=== PATIENT | male | born 1980 | race American Indian/Alaskan Native ===

== ENCOUNTER → 2017-03-11 | Outpatient (CLI) | payer OTHER ==
[~2017-03-11] MED LIST: ACET325 PO; ALBIPROI INH; ALLO100 PO; ATOR10 PO; AZIT250 PO; Augmentin 875-1 EACH PO; BUSP10 PO; Bactrim Ds Tab1 EACH PO; CEPH500 PO; CITA20 PO; CLAR500 PO; CYCL10 PO; DIPATR PO; DOXY100 PO; Flonase 0.05% N16 GM; HYDACE5 PO; HYDACE5325 PO; HYDGUAL120 PO; HYDMOR4; HYDR1TAB94 PO; IBUP600 PO; IBUP800 PO; LISI5 PO; Lice Cream Rin120 ML TP; META400 PO; METF500 PO; METPRE4DP PO; NAPR500; NAPR550; NYST100000; Norco 10-325 T1 EACH PO; OMEP40CA12 PO; OXYACE5T PO; PRED20 PO; Percocet 5-3251 EACH PO; Prednisone20 MG PO; RANI150; RANI150 PO; RXPROCODSY PO; RXPROM25S PR; SULI200 PO; [UNRECOGNIZED DRUG - REMARK]; [UNRECOGNIZED DRUG - REMARK]; [UNRECOGNIZED DRUG - REMARK]
== END ==
LOC: LAB EV 15:33
DX: L03.115 Cellulitis of right lower limb (principal)
CPT/HCPCS: 87070; 87075; 87147; 87205

== ENCOUNTER → 2017-10-03 | Outpatient (CLI) | payer OTHER | END | disposition home or self-care (01) | LOC: LAB SHORT 12:36 → LAB 12:36 | DX: B35.1 Tinea unguium (principal); L60.2 Onychogryphosis | CPT/HCPCS: 87102 ==

== ENCOUNTER 2018-10-13 14:28 | Emergency (ER) | payer OTHER ==
[~2018-10-13] VITALS: Ht 180.3 cm; Wt 181.4 kg
[2018-10-13 15:22] LABS: Source, Urine Clean Catch
[2018-10-13 15:25] LABS: Bilirubin, Urine Neg (Neg); Blood, Urine Neg (Neg); Glucose Qualitative, Urine 4+ (Neg); Ketones, Urine Neg (Neg); Leukocyte Esterase, Urine Neg (Neg); Nitrite, Urine Neg (Neg); Protein, Urine Neg (Neg); Specific Gravity, Urine 1.025 (1.003-1.022); Urobilinogen, Urine NORM (Normal)
[2018-10-13 15:28] LABS: BASOPHILS ABSOLUTE AUTO 0.05 K/mm3 (0.00-0.23); BASOPHILS PERCENT AUTO 0 % (0-2); EOSINOPHILS ABSOLUTE AUTO 0.14 K/mm3 (0.00-0.68); EOSINOPHILS PERCENT AUTO 1 % (0-6); Hematocrit 42.5 % (37.0-53.0); Hemoglobin 14.8 g/dL (13.5-17.5); IMMATURE GRAN ABSOLUTE AUTO 0.05 K/mm3 (0.00-0.10); IMMATURE GRAN PERCENT AUTO 0 % (0-1); LYMPHOCYTES ABSOLUTE AUTO 3.66 K/mm3 (0.84-5.20); LYMPHOCYTES PERCENT AUTO 31 % (21-46); MONOCYTES ABSOLUTE AUTO 0.86 K/mm3 (0.16-1.47); MONOCYTES PERCENT AUTO 7 % (4-13); Mean Corpuscular HGB 31.6 pg (26.0-34.0); Mean Corpuscular HGB Conc 34.8 g/dL (31.5-36.5); Mean Corpuscular Volume 91 fL (80-100); NEUTROPHILS ABSOLUTE AUTO 7.14 K/mm3 (1.96-9.15); NEUTROPHILS PERCENT AUTO 60 % (41-73); RDW Coefficient Variation 12.5 % (11.7-14.2); RDW Standard Deviation 40.6 fL (35.1-46.3); Red Blood Cell Count 4.69 M/mm3 (4.30-5.90)
[2018-10-13 15:37] LABS: Mean Platelet Volume 12.4 fL (9.1-12.4); Platelet Count 234 K/mm3 (150-400)
[2018-10-13 15:37] LABS: Appearance, Urine Clear (Clear); Color, Urine Yellow (P-Yellow)
== END 2018-10-13 17:50 | disposition left against medical advice (07) ==
LOC: ER 14:28
PROVIDERS: Physician Assistant
DX: R53.1 Weakness (principal); E11.9 Type 2 diabetes mellitus without complications; Z53.20 Procedure and treatment not carried out because of patient's decision for unspecified reasons
CPT/HCPCS: 36415; 71046; 81003; 82947; 85025; 93005; 93010; 99285-25

== ENCOUNTER 2019-12-25 15:33 | Inpatient (IN) | payer OTHER ==
[~2019-12-25] VITALS: Ht 180.3 cm; Wt 165.1 kg
[~2019-12-25 15:33] MED LIST changes: -ABAT250V; -CIPR500 PO; -Flagyl500 MG PO; -Norco 5-325 Ta1 EACH PO
--- NOTE | 2019-12-25 20:40 | NUR ---
PT ARRIVED FROM ER VIA GURNEY, TRANSFERED SELF TO BED. REPORTS INCREASE IN PAIN TO 5/10 WHEN MOVING BUT TOLERABLE WHEN SITTING OR STANDING. DECLINES NEED FOR PAIN MEDICATION AT THIS TIME. PT [id number] ANSWERS QUESTIONS APPROPRIATLY, PAIN LOCATED IN LLQ PER PATIENT. PATIENT LEFT ROOM TO GO SMOKE, EDUCATED PATIENT ON RISKS OF SMOKING WITH WOUND HEALING AND ASKED IF PT WOULD BE WILLING TO EXPLORE ALTERNATIVES TO SMOKING, PT DECLINED AT THIS TIME AND STATED "MAYBE LATER". NO WEAKNESS NOTED WITH AMBULATION. EDUCATED BARREL FILLER HEAD LIGHT. WILL START IV FLUIDS ONCE PATIENT RETURNS.
[2019-12-26 03:57] LABS: BASOPHILS ABSOLUTE AUTO 0.06 K/mm3 (0.00-0.23); BASOPHILS PERCENT AUTO 0 % (0-2); EOSINOPHILS PERCENT AUTO 2 % (0-6); Hematocrit 41.1 % (37.0-53.0); IMMATURE GRAN ABSOLUTE AUTO 0.12 K/mm3 (0.00-0.10); IMMATURE GRAN PERCENT AUTO 1 % (0-1); LYMPHOCYTES ABSOLUTE AUTO 3.72 K/mm3 (0.84-5.20); LYMPHOCYTES PERCENT AUTO 23 % (21-46); MONOCYTES ABSOLUTE AUTO 1.57 K/mm3 (0.16-1.47); MONOCYTES PERCENT AUTO 10 % (4-13); Mean Corpuscular HGB 31.1 pg (26.0-34.0); Mean Corpuscular HGB Conc 34.1 g/dL (31.5-36.5); Mean Corpuscular Volume 91 fL (80-100); Mean Platelet Volume 10.8 fL (9.1-12.4); NEUTROPHILS ABSOLUTE AUTO 10.59 K/mm3 (1.96-9.15); NEUTROPHILS PERCENT AUTO 65 % (41-73); Platelet Count 223 K/mm3 (150-400); RDW Coefficient Variation 11.9 % (11.7-14.2); White Blood Cell Count 16.36 K/mm3 (4.00-11.30)
[2019-12-26 04:09] LABS: Anion Gap 5 mmol/L (6-16); Blood Urea Nitrogen 8 mg/dL (8-24); CO2, Blood 29 mmol/L (21-32); Calcium, Blood 6.9 mg/dL (8.5-10.1); Chloride, Blood 101 mmol/L (98-108); Creatinine, Blood 0.61 mg/dL (0.60-1.20); Glomerular Filtration Rate >60 (60-); Glucose, Blood 240 mg/dL (70-99); Potassium, Blood 3.7 mmol/L (3.5-5.5); Sodium, Blood 135 mmol/L (136-145)
--- NOTE | 2019-12-26 08:05 | NUR ---
SUMMARY PT REQUIRING DILAUDID FOR ADEQUATE PAIN CONTROL TONIGHT.
--- NOTE | 2019-12-26 16:15 | NUR ---
SUMMARY: NO ACUTE CHANGE TODAY. VSS, A/O, PT INDEP IN ROOM. ABLE TO TOLERATE CLEAR LIQ DIET TODAY. REPORTS CONTINUED PAIN, BUT NOT WORSE WITH LIQUID. DENIES N/V. ENCOURAGING MOBILITY. CONTINUING ON ABX. NO SAFETY CONCERNS AT THIS TIME.
--- NOTE | 2019-12-27 04:16 | NUR ---
SHIFT SUMMARY: DIVERTICULITIS WITH PERF PT HAS BEEN ALERT AND ORIENTED X4 WHILE AWAKE. HE HAS BEEN MAJORITY OF THE SHIFT ASLEEP. PT REPORTS STILL HAVING A TENDER STOMACH MORE ON THE LEFT SIDE. PAIN IS BEST MANAGED WITH IV DILAUDID. HE IS INDEPENDENT IN THE ROOM. PT IS VOIDING, PASSING GAS, AND HAVING BM'S. HE IS TOLERATING CLEAR LIQUIDS WITH NO NAUSEA/VOMITING. HE IS CURRENTLY LYING IN BED SLEEPING WITH CALL LIGHT IN REACH. THE PLAN IS TO CONTINUE IV ABX AND MONITOR LABS.
--- NOTE | 2019-12-27 09:55 | NUR ---
PATIENT GAVE THIS STUDENT NURSE PERMISSION TO PROVIDE CARE ON
[2019-12-27 10:42] LABS: BASOPHILS ABSOLUTE AUTO 0.05 K/mm3 (0.00-0.23); BASOPHILS PERCENT AUTO 0 % (0-2); EOSINOPHILS ABSOLUTE AUTO 0.33 K/mm3 (0.00-0.68); EOSINOPHILS PERCENT AUTO 3 % (0-6); Hematocrit 43.4 % (37.0-53.0); Hemoglobin 14.7 g/dL (13.5-17.5); IMMATURE GRAN ABSOLUTE AUTO 0.07 K/mm3 (0.00-0.10); IMMATURE GRAN PERCENT AUTO 1 % (0-1); LYMPHOCYTES ABSOLUTE AUTO 2.55 K/mm3 (0.84-5.20); LYMPHOCYTES PERCENT AUTO 20 % (21-46); MONOCYTES ABSOLUTE AUTO 1.04 K/mm3 (0.16-1.47); MONOCYTES PERCENT AUTO 8 % (4-13); Mean Corpuscular HGB 31.1 pg (26.0-34.0); Mean Corpuscular HGB Conc 33.9 g/dL (31.5-36.5); Mean Corpuscular Volume 92 fL (80-100); Mean Platelet Volume 10.7 fL (9.1-12.4); NEUTROPHILS ABSOLUTE AUTO 8.43 K/mm3 (1.96-9.15); NEUTROPHILS PERCENT AUTO 68 % (41-73); Platelet Count 248 K/mm3 (150-400); RDW Coefficient Variation 11.9 % (11.7-14.2); Red Blood Cell Count 4.72 M/mm3 (4.30-5.90); White Blood Cell Count 12.47 K/mm3 (4.00-11.30)
[2019-12-27] MEDS ORDERED: Norco 5-325 Ta1 EACH PO (12:03)
[2019-12-27] MEDS ORDERED: Flagyl500 MG PO (12:04)
[2019-12-27] MEDS ORDERED: ABAT250V (12:07)
[2019-12-27] MEDS ORDERED: CIPR500 PO (12:07)
--- NOTE | 2019-12-27 14:53 | NUR ---
DISCHARGE SUMMARY PT A&OX4, VSS, REP PAIN MANAGED WITH 5 MG NORCO, DENIES N&V, DANICA PO REG DIET, DC INSTRUCTIONS PROVIDED, PT REP UNDERSTANDING THOSE INSTRUCTIONS INCLUDING MODIFIED DIET, FU WITH SURGEON, PAIN MANAGEMENT. IV DC'D.
== END 2019-12-27 16:00 | disposition home or self-care (01) | DRG 392 ==
LOC: ER 15:33 → SURS 18:25
PROVIDERS: ADMIT Surgery
PROC: 3E0234Z Introduction of Serum, Toxoid and Vaccine into Muscle, Percutaneous Approach (ICD-10-PCS; principal; 2019-12-25)
DX: K57.20 Diverticulitis of large intestine with perforation and abscess without bleeding (principal); Z68.43 Body mass index [BMI] 50.0-59.9, adult; E11.9 Type 2 diabetes mellitus without complications; Z23 Encounter for immunization; I10 Essential (primary) hypertension; E66.01 Morbid (severe) obesity due to excess calories; F17.210 Nicotine dependence, cigarettes, uncomplicated; Z79.84 Long term (current) use of oral hypoglycemic drugs
CPT/HCPCS: 36415; 80048; 82947; 83605; 85025; 96365; 96375; 99283-25; A9270-GY; J0744; J1170; J1650; J1956; J2270; J3010; J7120; Q2038

== ENCOUNTER → 2019-12-25 | Outpatient (CLI) | payer OTHER ==
[~2019-12-25] MED LIST changes: +ABAT250V; +CIPR500 PO; +Flagyl500 MG PO; +Norco 5-325 Ta1 EACH PO
[2019-12-25 13:00] LABS: BASOPHILS ABSOLUTE AUTO 0.07 K/mm3 (0.00-0.23); BASOPHILS PERCENT AUTO 0 % (0-2); EOSINOPHILS ABSOLUTE AUTO 0.11 K/mm3 (0.00-0.68); EOSINOPHILS PERCENT AUTO 1 % (0-6); Hematocrit 44.4 % (37.0-53.0); Hemoglobin 15.9 g/dL (13.5-17.5); IMMATURE GRAN ABSOLUTE AUTO 0.11 K/mm3 (0.00-0.10); IMMATURE GRAN PERCENT AUTO 1 % (0-1); LYMPHOCYTES PERCENT AUTO 13 % (21-46); MONOCYTES ABSOLUTE AUTO 1.89 K/mm3 (0.16-1.47); MONOCYTES PERCENT AUTO 8 % (4-13); Mean Corpuscular HGB 31.7 pg (26.0-34.0); Mean Corpuscular HGB Conc 35.8 g/dL (31.5-36.5); Mean Corpuscular Volume 88 fL (80-100); Mean Platelet Volume 10.9 fL (9.1-12.4); NEUTROPHILS ABSOLUTE AUTO 17.45 K/mm3 (1.96-9.15); NEUTROPHILS PERCENT AUTO 77 % (41-73); Platelet Count 269 K/mm3 (150-400); RDW Coefficient Variation 12.1 % (11.7-14.2); RDW Standard Deviation 38.8 fL (35.1-46.3); Red Blood Cell Count 5.02 M/mm3 (4.30-5.90); White Blood Cell Count 22.53 K/mm3 (4.00-11.30)
[2019-12-25 13:09] LABS: Alanine Aminotransfer (ALT/SGP 45 U/L (12-78); Albumin, Blood 3.7 g/dL (3.4-5.0); Albumin/Globulin Ratio 0.8 (0.8-1.8); Alk Phos 98 U/L (40-126); Anion Gap 9 mmol/L (6-16); Aspartate Aminotrans (AST/SGOT 13 U/L (12-37); Bilirubin, Total 1.6 mg/dL (0.1-1.0); Blood Urea Nitrogen 9 mg/dL (8-24); Bun/Creatinine Ratio 9.4 (12.0-20.0); CO2, Blood 27 mmol/L (21-32); Calcium, Blood 9.2 mg/dL (8.5-10.1); Chloride, Blood 95 mmol/L (98-108); Creatinine, Blood 0.96 mg/dL (0.60-1.20); Globulin, Blood 4.7 g/dL (2.2-4.0); Glomerular Filtration Rate >60 (60-); Glucose, Blood 293 mg/dL (70-99); Potassium, Blood 3.9 mmol/L (3.5-5.5); Sodium, Blood 131 mmol/L (136-145); Total Protein, Blood 8.4 g/dL (6.4-8.2)
== END | disposition home or self-care (01) ==
LOC: LAB EV 12:54 → LAB SHORT 12:54
PROVIDERS: Physician Assistant
DX: R10.9 Unspecified abdominal pain (principal)
CPT/HCPCS: 80053; 85025; 87086

== ENCOUNTER 2020-02-03 10:26 | Day surgery (SDC) | payer OTHER ==
[~2020-02-03] VITALS: Ht 180.3 cm; Wt 158.0 kg
[~2020-02-03 10:26] MED LIST changes: +ABAT250V; +ATOR20 PO; +CIPR500 PO; +Flagyl500 MG PO; +GABA100 PO; +GLIP5 PO; +GLUCOSE TABS PO; +MELO7.5 PO; +Norco 5-325 Ta1 EACH PO
--- NOTE | 2020-02-03 12:09 | NUR ---
Ambulatory in Day SurgeryPatient states colon prep results clear. History, Chart, Medications and Allergies reviewed before start of procedure.Lungs clear T/O to Auscultation. Patient confirms NPO status and agrees with scheduled surgery. Patient States Post-Procedure ride home has been arranged. PT CBG [id number], WILL NOTIFY DR ELLIS. REPORT TO VINCENZO CLARK RN.
--- NOTE | 2020-02-03 13:00 | NUR ---
PT HAS BEEN UPDATED ABOUT DELAY DUE TO EMERGENCY CASE. PT FIRST REPORTS THAT HE MAY NEED TO RESCHEDULE FOR ANOTHER DAY STATES "I GOTTA GET SOMETHING TO EAT". DR EDOUARD THEN OVER TO UPDATE PT AND PT NOW PLANS TO STAY. PT IS AWARE THAT PT IT MAYBE SEVERAL HOURS UNTIL HIS PROCEDURE.
--- NOTE | 2020-02-03 16:19 | NUR ---
02/03/20 [address] DR ARGUETA Anesthesia record Patient to ENDO 1. History, Chart, Medications and Allergies reviewed before start of procedure.MONITOR INTACT WITH CONTINUOUS PULSE OXIMETRY AND INTERMITTENT BP.O2 VIA NON REBREATHER INTACT THROUGHOUT SEDATION/PROCEDURE.
--- NOTE | 2020-02-03 17:20 | NUR ---
Discharge instructions reviewed with patient. Patient verbalizes understanding. Copy given to patient to take home. History, Chart, Medications and Allergies reviewed before start of procedure.Discharged via wheelchair to private car for ride home.
== END 2020-02-03 17:31 | disposition home or self-care (01) ==
LOC: ORSCMMR 10:26 → ORD 12:00 → ORSCMMR 17:31
PROVIDERS: Surgery
PROC: 0DJD8ZZ Inspection of Lower Intestinal Tract, Via Natural or Artificial Opening Endoscopic (ICD-10-PCS; principal; 2020-02-03 12:00)
DX: Z87.19 Personal history of other diseases of the digestive system (principal); E11.9 Type 2 diabetes mellitus without complications; F32.9 Major depressive disorder, single episode, unspecified; E66.01 Morbid (severe) obesity due to excess calories; Z68.42 Body mass index [BMI] 45.0-49.9, adult; Z79.84 Long term (current) use of oral hypoglycemic drugs; Z79.899 Other long term (current) drug therapy; F17.210 Nicotine dependence, cigarettes, uncomplicated
CPT/HCPCS: 82947; J2704; J7120

== ENCOUNTER 2020-05-05 09:02 | Inpatient (IN) | payer OTHER ==
[~2020-05-05] VITALS: Ht 180.3 cm; Wt 155.6 kg
[2020-05-05 10:29] LABS: BASOPHILS ABSOLUTE AUTO 0.08 K/mm3 (0.00-0.23); BASOPHILS PERCENT AUTO 1 % (0-2); EOSINOPHILS ABSOLUTE AUTO 0.15 K/mm3 (0.00-0.68); EOSINOPHILS PERCENT AUTO 1 % (0-6); Hematocrit 46.2 % (37.0-53.0); IMMATURE GRAN ABSOLUTE AUTO 0.08 K/mm3 (0.00-0.10); IMMATURE GRAN PERCENT AUTO 1 % (0-1); LYMPHOCYTES ABSOLUTE AUTO 3.84 K/mm3 (0.84-5.20); LYMPHOCYTES PERCENT AUTO 24 % (21-46); MONOCYTES ABSOLUTE AUTO 1.13 K/mm3 (0.16-1.47); MONOCYTES PERCENT AUTO 7 % (4-13); Mean Corpuscular HGB 30.8 pg (26.0-34.0); Mean Corpuscular HGB Conc 34.6 g/dL (31.5-36.5); Mean Corpuscular Volume 89 fL (80-100); Mean Platelet Volume 10.7 fL (9.1-12.4); NEUTROPHILS ABSOLUTE AUTO 10.72 K/mm3 (1.96-9.15); NEUTROPHILS PERCENT AUTO 67 % (41-73); Platelet Count 283 K/mm3 (150-400); RDW Coefficient Variation 11.7 % (11.7-14.2)
[2020-05-05 10:48] LABS: Alanine Aminotransfer (ALT/SGP 54 U/L (12-78); Albumin, Blood 3.6 g/dL (3.4-5.0); Albumin/Globulin Ratio 0.8 (0.8-1.8); Alk Phos 94 U/L (50-136); Anion Gap 8 mmol/L (6-16); Aspartate Aminotrans (AST/SGOT 28 U/L (12-37); Bilirubin, Total 0.7 mg/dL (0.1-1.0); Blood Urea Nitrogen 8 mg/dL (8-24); Bun/Creatinine Ratio 11.6 (12.0-20.0); CO2, Blood 27 mmol/L (21-32); Chloride, Blood 99 mmol/L (98-108); Creatinine, Blood 0.69 mg/dL (0.60-1.20); Globulin, Blood 4.7 g/dL (2.2-4.0); Glomerular Filtration Rate >60 (60-); Glucose, Blood 269 mg/dL (70-99); Potassium, Blood 4.2 mmol/L (3.5-5.5); Sodium, Blood 134 mmol/L (136-145); Total Protein, Blood 8.3 g/dL (6.4-8.2)
[2020-05-05 12:31] LABS: Source, Urine Clean Catch
[2020-05-05 12:37] LABS: Appearance, Urine Clear (Clear); Bilirubin, Urine Neg (Neg); Blood, Urine Neg (Neg); Color, Urine Yellow (P-Yellow); Glucose Qualitative, Urine 3+ (Neg); Ketones, Urine 2+ (Neg); Leukocyte Esterase, Urine Neg (Neg); Nitrite, Urine Neg (Neg); Protein, Urine 1+ (Neg); Specific Gravity, Urine 1.015 (1.003-1.022); Urobilinogen, Urine NORM (Normal)
--- NOTE | 2020-05-05 18:47 | NUR ---
SHIFT SUMMARY/ADMISSION TO MEDICAL FLOOR PT AxOx4. COOPERATIVE WITH CARE. ARRIVED TO MEDICAL FLOOR FOR ADMIT AT APPROX 1540. PT C/O LLQ ABD PAIN x1 WEEK. PAIN MED ADMINISTERED PER EMAR. PT CONTINENT, AND INDEPENDENT IN THE ROOM. SURGICAL CONSULTED TONIGHT. NO SURGERY NEEDED AT THIS TIME. PLAN FOR BOWEL REST, IV ABX, AND PAIN MANAGEMENT. FLUIDS RUNNING. VITALS REVIEWED. PT DENIES ANY NEEDS AT THIS TIME.
--- NOTE | 2020-05-06 04:43 | NUR ---
SECOND WORKER SUMMARY A/OX4, IND IN ROOM. C/O LLQ PAIN, MEDICATED PER EMAR X 4. PT UPSET AT BEGINNING OF SHIFT D/T INADEQUATE PAIN RELIEF WITH MORPHINE 2MG Q2. DISCUSSED WITH TANK SETTER PROVIDER, NEW ORDER PLACED TO D/C MORPHINE AND CHANGE TO DILAUDID 0.5MG Q2. IV ABX GIVEN, D5 WITH NS RUNNING AT 100. VSS, NO ACUTE CHANGES AT THIS TIME. BED IN LOWEST POSITION WITH CALL LIGHT IN REACH. WILL CONTINUE TO MONITOR AND REPORT TO ONCOMING RN.
[2020-05-06 04:56] LABS: BASOPHILS ABSOLUTE AUTO 0.07 K/mm3 (0.00-0.23); BASOPHILS PERCENT AUTO 1 % (0-2); EOSINOPHILS ABSOLUTE AUTO 0.18 K/mm3 (0.00-0.68); EOSINOPHILS PERCENT AUTO 2 % (0-6); Hematocrit 42.6 % (37.0-53.0); Hemoglobin 14.9 g/dL (13.5-17.5); IMMATURE GRAN ABSOLUTE AUTO 0.05 K/mm3 (0.00-0.10); IMMATURE GRAN PERCENT AUTO 0 % (0-1); LYMPHOCYTES PERCENT AUTO 23 % (21-46); MONOCYTES ABSOLUTE AUTO 0.96 K/mm3 (0.16-1.47); MONOCYTES PERCENT AUTO 8 % (4-13); Mean Corpuscular HGB 31.4 pg (26.0-34.0); Mean Corpuscular Volume 90 fL (80-100); Mean Platelet Volume 10.6 fL (9.1-12.4); NEUTROPHILS ABSOLUTE AUTO 8.14 K/mm3 (1.96-9.15); NEUTROPHILS PERCENT AUTO 67 % (41-73); Platelet Count 255 K/mm3 (150-400); RDW Coefficient Variation 11.9 % (11.7-14.2); RDW Standard Deviation 38.6 fL (35.1-46.3); Red Blood Cell Count 4.75 M/mm3 (4.30-5.90)
[2020-05-06 05:46] LABS: Alanine Aminotransfer (ALT/SGP 45 U/L (12-78); Albumin, Blood 3.1 g/dL (3.4-5.0); Albumin/Globulin Ratio 0.8 (0.8-1.8); Alk Phos 80 U/L (50-136); Anion Gap 7 mmol/L (6-16); Aspartate Aminotrans (AST/SGOT 18 U/L (12-37); Bilirubin, Total 0.9 mg/dL (0.1-1.0); Blood Urea Nitrogen 8 mg/dL (8-24); Bun/Creatinine Ratio 11.9 (12.0-20.0); CO2, Blood 27 mmol/L (21-32); Calcium, Blood 9.1 mg/dL (8.5-10.1); Chloride, Blood 101 mmol/L (98-108); Creatinine, Blood 0.67 mg/dL (0.60-1.20); Globulin, Blood 4.1 g/dL (2.2-4.0); Glomerular Filtration Rate >60 (60-); Glucose, Blood 239 mg/dL (70-99); Potassium, Blood 3.6 mmol/L (3.5-5.5); Sodium, Blood 135 mmol/L (136-145); Total Protein, Blood 7.2 g/dL (6.4-8.2)
--- NOTE | 2020-05-06 18:36 | NUR ---
PT IS A/OX4, PLEASANT AND COOPERATIVE, THE PT APPEARS TO BE BREATHING EASILY ON RA AT THIS TIME, THE PT HAS BEEN UP WALKING IN THE [place]AB[place] ON THE MEDICAL FLOOR, THE PT CONTINUES TO HAVE LLQ ABD PAIN, AND WAS MEDICATED FOR PAIN T/O THE DAY, THE PT HAS BEEN TOLERATING CLEAR LIQUID DIET WITHOUT NAUSEA, CALL LIGHT IN REACH, WILL CONTINUE TO MONITOR AND ASSESS FOR CHANGES
--- NOTE | 2020-05-07 04:04 | NUR ---
CLIENT SERVICES ACCOUNT MANAGER SUMMARY A/OX4, INDEPENDENT IN ROOM. MEDICATED FOR LLQ PAIN X4. TOLERATING CLEAR LIQUID DIET. VSS, NO ACUTE CHANGES AT THIS TIME. BED IN LOWEST POSITION WITH CALL LIGHT IN REACH. WILL CONTINUE TO MONITOR AND REPORT TO ONCOMING RN.
[2020-05-07 05:39] LABS: BASOPHILS ABSOLUTE AUTO 0.04 K/mm3 (0.00-0.23); BASOPHILS PERCENT AUTO 0 % (0-2); EOSINOPHILS ABSOLUTE AUTO 0.23 K/mm3 (0.00-0.68); EOSINOPHILS PERCENT AUTO 2 % (0-6); Hemoglobin 14.3 g/dL (13.5-17.5); IMMATURE GRAN ABSOLUTE AUTO 0.04 K/mm3 (0.00-0.10); IMMATURE GRAN PERCENT AUTO 0 % (0-1); LYMPHOCYTES ABSOLUTE AUTO 2.92 K/mm3 (0.84-5.20); LYMPHOCYTES PERCENT AUTO 27 % (21-46); MONOCYTES ABSOLUTE AUTO 0.94 K/mm3 (0.16-1.47); MONOCYTES PERCENT AUTO 9 % (4-13); Mean Corpuscular HGB 31.1 pg (26.0-34.0); Mean Corpuscular HGB Conc 34.9 g/dL (31.5-36.5); Mean Corpuscular Volume 89 fL (80-100); Mean Platelet Volume 10.4 fL (9.1-12.4); NEUTROPHILS ABSOLUTE AUTO 6.85 K/mm3 (1.96-9.15); NEUTROPHILS PERCENT AUTO 62 % (41-73); Platelet Count 254 K/mm3 (150-400); RDW Coefficient Variation 11.7 % (11.7-14.2); RDW Standard Deviation 37.5 fL (35.1-46.3); White Blood Cell Count 11.02 K/mm3 (4.00-11.30)
[2020-05-07 06:04] LABS: Anion Gap 6 mmol/L (6-16); Blood Urea Nitrogen 4 mg/dL (8-24); Bun/Creatinine Ratio 6.1 (12.0-20.0); CO2, Blood 27 mmol/L (21-32); Chloride, Blood 103 mmol/L (98-108); Creatinine, Blood 0.66 mg/dL (0.60-1.20); Glomerular Filtration Rate >60 (60-); Glucose, Blood 173 mg/dL (70-99); Potassium, Blood 3.8 mmol/L (3.5-5.5); Sodium, Blood 136 mmol/L (136-145)
--- NOTE | 2020-05-07 18:24 | NUR ---
PT IS A/OX3, PLEASANT AND COOPERATIVE, THE PT APPEARS TO BE BREATHING EASILY ON RA AT THIS TIME, THE PT WAS MEDICATED FOR ABD PAIN T/O THE DAY, PT STATED THAT THE PAIN CAME AFTER BM'S MOSTLY. PT WAS ADVANCED TO A FULL LIQUID DIET TODAY AND SO FAR HAS TOLERATED WITHOUT NAUSEA, THE PT HAS BEEN UP WALKING IN THE HALLWAY, PTS WAS IN TO VISIT, CALL LIGHT IN REACH, WILL CONTINUE TO MONITOR AND ASSESS FOR CHANGES
--- NOTE | 2020-05-08 05:13 | NUR ---
SHIFT SUMMARY NO ACUTE CHANGES TO REPORT THIS SHIFT. PT REPORTS THAT HE IS FEELING BETTER. DENIES N/V, AND IS TOLERATING DIET. PT SLEPT MOST OF THE NIGHT, AWAKE FIRST HALF OF THE SHIFT ON HIS PHONE AND PERSONAL COMPUTER. PT STILL HAVING LOOSE STOOLS AND IS COMPLANING OF PAIN. MEDICATED Q3 HR FOR PAIN WITH DILAUDID. PT HAS BEEN INDEPENDENT IN THE ROOM. POSSIBLE DC TODAY. BED IN LOWEST POSITION, CALL LIGHT WITHIN REACH.
[2020-05-08] MEDS ORDERED: HUMULIN R100 UNIT/2 SC (12:00)
[2020-05-08] MEDS ORDERED: Percocet 5-3251 EACH PO (12:01)
[2020-05-08] MEDS ORDERED: AUGMENTIN XR 11 EACH PO (12:02)
--- NOTE | 2020-05-08 14:43 | NUR ---
DISCHARGED:escorted in wc to family car, walked from back of car to passenger seat, REMOVED: iv with not issues, REVIEWED stay, discharge medications, follow up appointments, discharge instructions and how to give himself an insulin injection, pt was able to review instructions and demonstrate giving himself 6 units of R insulin as required by the ss, left with a prescription for needles and insulin
== END 2020-05-08 13:30 | disposition home or self-care (01) | DRG 392 ==
LOC: ER 09:02 → MEDS 14:15
PROVIDERS: Emergency Medicine; Family Medicine; Physician Assistant; ADMIT Internal Medicine
DX: K57.20 Diverticulitis of large intestine with perforation and abscess without bleeding (principal); E11.9 Type 2 diabetes mellitus without complications; I10 Essential (primary) hypertension; M10.9 Gout, unspecified; M54.9 Dorsalgia, unspecified; G89.29 Other chronic pain; Z91.048 Other nonmedicinal substance allergy status; F17.210 Nicotine dependence, cigarettes, uncomplicated; Z90.49 Acquired absence of other specified parts of digestive tract
CPT/HCPCS: 36415; 74177; 80048; 80053; 82947; 83036; 83690; 85025; 96365-59; 96375; 99285-25; A9270; J0295; J1170; J1650; J1815; J1885; J2270; J2405; J2543; J7030; J7042; Q2038; Q9967

== ENCOUNTER 2020-10-30 12:26 | Emergency (ER) | payer OTHER ==
[~2020-10-30 12:26] MED LIST changes: +AUGMENTIN XR 11 EACH PO; +HUMULIN R100 UNIT/2 SC
== END 2020-10-30 18:31 | disposition left against medical advice (07) ==
LOC: ER 12:26
DX: Z53.21 Procedure and treatment not carried out due to patient leaving prior to being seen by health care provider (principal)

== ENCOUNTER 2021-08-02 16:48 | Emergency (ER) | payer OTHER ==
[~2021-08-02] VITALS: Ht 180.3 cm; Wt 136.1 kg
[2021-08-02] MEDS ORDERED: IBU800 MG PO (18:29)
[2021-08-02] MEDS ORDERED: HYDR1TAB94 PO (18:29)
[2021-08-02] MEDS ORDERED: ONDA4ODT MM (18:29)
== END 2021-08-02 18:41 | disposition home or self-care (01) ==
LOC: ER 16:48
DX: S00.81XA Abrasion of other part of head, initial encounter (principal); W22.09XA Striking against other stationary object, initial encounter; I10 Essential (primary) hypertension; E11.9 Type 2 diabetes mellitus without complications; Z79.4 Long term (current) use of insulin; Z79.899 Other long term (current) drug therapy; Z91.048 Other nonmedicinal substance allergy status
CPT/HCPCS: 70450; 99284-25; A9270

== ENCOUNTER → 2022-07-04 | Outpatient (CLI) | payer OTHER ==
[~2022-07-04] MED LIST changes: +IBU800 MG PO; +ONDA4ODT MM
[2022-07-04 14:32] LABS: BASOPHILS ABSOLUTE AUTO 0.09 K/mm3 (0.00-0.23); BASOPHILS PERCENT AUTO 1 % (0-2); EOSINOPHILS ABSOLUTE AUTO 0.12 K/mm3 (0.00-0.68); EOSINOPHILS PERCENT AUTO 1 % (0-6); Hematocrit 47.4 % (37.0-53.0); IMMATURE GRAN ABSOLUTE AUTO 0.05 K/mm3 (0.00-0.10); IMMATURE GRAN PERCENT AUTO 0 % (0-1); LYMPHOCYTES ABSOLUTE AUTO 4.45 K/mm3 (0.84-5.20); LYMPHOCYTES PERCENT AUTO 35 % (21-46); MONOCYTES ABSOLUTE AUTO 0.72 K/mm3 (0.16-1.47); MONOCYTES PERCENT AUTO 6 % (4-13); Mean Corpuscular HGB Conc 35.9 g/dL (31.5-36.5); Mean Corpuscular Volume 89 fL (80-100); Mean Platelet Volume 10.7 fL (9.1-12.4); NEUTROPHILS ABSOLUTE AUTO 7.36 K/mm3 (1.96-9.15); NEUTROPHILS PERCENT AUTO 58 % (41-73); Platelet Count 287 K/mm3 (150-400); RDW Coefficient Variation 11.9 % (11.7-14.2); RDW Standard Deviation 38.6 fL (35.1-46.3); Red Blood Cell Count 5.31 M/mm3 (4.30-5.90); White Blood Cell Count 12.79 K/mm3 (4.00-11.30)
[2022-07-04 15:34] LABS: Alanine Aminotransfer (ALT/SGP 51 U/L (12-78); Albumin, Blood 4.1 g/dL (3.4-5.0); Alk Phos 123 U/L (50-136); Anion Gap 7 mmol/L (6-16); Aspartate Aminotrans (AST/SGOT 19 U/L (12-37); Bilirubin, Total 0.3 mg/dL (0.1-1.0); Blood Urea Nitrogen 12 mg/dL (8-24); CHOL/HDL RATIO 4.1; CO2, Blood 25 mmol/L (21-32); Calcium, Blood 9.8 mg/dL (8.5-10.1); Chloride, Blood 104 mmol/L (98-108); Cholesterol 141 mg/dL (50-200); Creatinine, Blood 0.63 mg/dL (0.60-1.20); Glomerular Filtration Rate 122 (60-); Glucose, Blood 341 mg/dL (70-99); HDL Cholesterol 34 mg/dL (>39); LDL/HDL RATIO 2.1; Low Density Lipoprotein Chol 72 mg/dL (0-110); Potassium, Blood 4.1 mmol/L (3.5-5.5); Sodium, Blood 136 mmol/L (136-145); Total Protein, Blood 8.1 g/dL (6.4-8.2); Triglycerides 173 mg/dL (30-160); Very Low Density Lipoprot Chol 34 mg/dL (6-32)
== END | disposition home or self-care (01) ==
LOC: LAB 14:24 → LAB SHORT 14:24
PROVIDERS: Emergency Medicine
DX: E11.9 Type 2 diabetes mellitus without complications (principal)
CPT/HCPCS: 80053; 80061; 83036; 85025